=== PATIENT | female | born 1965 | race Caucasian/White ===

== ENCOUNTER → 2017-12-31 | Outpatient (CLI) | payer OTHER ==
[~2017-12-31] VITALS: Ht 152.4 cm; Wt 65.8 kg
[~2017-12-31] MED LIST: EXCEDRIN MIGRA1 EAC3 PO; INCRUSE ELLI62.5 MCG IH; LEXAPRO20 MG PO; MELOXICAM7.5 MG PO; METHOCARBAMOL750 MG PO; NEURONTIN300 MG PO; NICODERM CQ1 EAC2 TD; PROTONIX40 MG PO; SINGULAIR10 MG PO; VENTOLIN HFA18 GM IH; WELLBUTRIN SR150 MG PO; ZOLOFT25 MG PO
== END | disposition home or self-care (01) ==
LOC: AMB 10:43
PROC: 0DJD8ZZ Inspection of Lower Intestinal Tract, Via Natural or Artificial Opening Endoscopic (ICD-10-PCS; principal; 2017-12-31)
DX: Z12.11 Encounter for screening for malignant neoplasm of colon (principal); K64.8 Other hemorrhoids; J44.9 Chronic obstructive pulmonary disease, unspecified; K21.9 Gastro-esophageal reflux disease without esophagitis; F17.210 Nicotine dependence, cigarettes, uncomplicated; Z88.0 Allergy status to penicillin; Z88.2 Allergy status to sulfonamides
CPT/HCPCS: 85014; 85018; J7120; Q0175